=== PATIENT | female | born 1990 | race Caucasian/White ===

== ENCOUNTER 2022-09-27 08:46 | Emergency (ER) | payer OTHER, SELFPAY ==
[2022-09-27 08:46] VITALS: BP 133/80; PULSE 93; RESP 18; TEMP 36.6; O2SAT 98; BMI 32.2
--- NOTE | 2022-09-27 08:54 | DI.US.S_ITS ---
PROCEDURE: US OB <= 14 WEEKS FETUS INDICATIONS: SPOTTING OUTSIDE/PRIOR DATING DATA: Last menstrual period (LMP): 07/21/2022 LMP-based estimated date of delivery (EMAUNEL): 04/27/2023. First dating scan (date and location): 09/27/2022. Estimated date of delivery (EMANUEL) from first dating scan: 04/28/2023. The calculations are made using the working EMANUEL of 04/27/2023. TECHNIQUE: Real-time scanning was performed of the fetus and maternal pelvic organs, with image documentation. Endovaginal scanning was also performed to better visualize the fetus and maternal ovaries. COMPARISON: None. FINDINGS: Embryo: [place]-rump length measures 2.7 cm corresponding with a 9 week 4 day gestation Heart rate: 169 beats per minute. Yolk sac appears normal. Maternal organs: Ovaries shows left-sided corpus luteum cyst. Perigestational bleed on the right measures 2.4 x 1.7 x 0.8, there is another anterior perigestational bleed measuring 1.6 x 3.4 x 0.9 cm IMPRESSION: Single live intrauterine consistent with a 9 week 4 day gestation 2 separate perigestational bleed is noted measuring up to 9 mm in thickness. Approved by: Ever Baker M.D. on 09/27/2022 at 10:08
--- NOTE | 2022-09-27 09:01 | ED_ITS ---
HPI - General Adult General Chief complaint: Vaginal Bleeding Stated complaint: 10 weeks preg, spotting Time Seen by Provider: 09/27/22 08:47 Source: patient Mode of arrival: Ambulatory Limitations: no limitations History of Present Illness HPI narrative: Patient is a 32-year-old female. at approximately 9.5 weeks EGA based off of an ultrasound last week. She is scheduled to see the OB providers for the 1s t time tomorrow. Patient's 1st ended in an elective at 17 weeks after the child was found to have cystic fibrosis after an amniocentesis. That was approximately 5 years ago. Patient states that a couple days ago she did have some abdominal pain that ended with a large bowel movement. Has not had any abdominal pain today but this morning started having vaginal bleeding that is worsened. She contacted the OB providers who advised that she come to the emergency department for further evaluation. Review of Systems Constitutional Constitutional: Reports system reviewed and no additional complaints, except as documented Gastrointestinal Gastrointestinal: Reports system reviewed and no additional complaints, except as documented Genitourinary Genitourinary: Reports system reviewed and no additional complaints, except as documented Musculoskeletal Musculoskeletal: Reports system reviewed and no additional complaints, except as documented Integumentary/Breasts Skin/Breast: Reports system reviewed and no additional complaints, except as documented Hematologic/Lymphatic On Anticoagulants: No Patient History Substance Use Type: does not use Exam Initial Vital Signs Initial Vital Signs: Vital Signs Temperature 97.8 F 09/27/22 08:46 Pulse Rate 93 H 09/27/22 08:46 Respiratory Rate 18 09/27/22 08:46 Blood Pressure 133/80 09/27/22 08:46 Pulse Oximetry 98 09/27/22 08:46 Oxygen Delivery Method 09/27/22 08:46 Const General: cooperative and comfortable Resp Effort & Inspection: normal respiratory effort Cardio Rate: regular rate GI Inspection: non-distended Skin General: no rashes or lesions noted Neuro General: patient alert, patient awake and moves all extremities Extrem General: capillary refill normal Course Orders Ordered: ED Orders 09/27/22 08:54 US OB <= 14 weeks fetus Stat 09/27/22 09:10 Basic Metabolic Panel Stat Complete Blood Count AUTO DIFF Stat HCG Quantitative /Beta subunit Stat 09/27/22 09:19 Urine Microscopic Stat 09/27/22 09:30 ABO RH Type Stat Vital Signs Vital signs: Vital Signs - 8 hr 09/27/22 08:46 Temperature 97.8 F Pulse Rate 93 H Respiratory Rate 18 Blood Pressure 133/80 Pulse Oximetry 98 Oxygen Delivery Method Room Air Medical Decision Making Lab Data Lab results reviewed: Yes I reviewed the patient's lab results. 09/27/22 09:10 09/27/22 09:10 Labs: Lab Results 09/27/22 09/27/22 09/27/22 Range/Units 09:10 09:10 09:10 WBC 7.3 (4.5-11.0) X10^3/uL RBC 4.03 (4.0-5.2) X10^6/uL Hgb 12.2 (12.0-16.0) g/dL Hct 35.5 L (36-46) % MCV 88.1 (80-100) fL MCH 30.2 (26-34) PG MCHC 34.3 (30-36) % RDW 12.8 (11.6-14.8) % Plt Count 250 (150-400) X10^3/uL Neut % (Auto) 73.4 (50-75) % Lymph % (Auto) 15.8 L (25-40) % Coal % (Auto) 5.4 (3-14) % Eos % (Auto) 1.1 L (2-4) % Baso % (Auto) 4.3 H (0-2) % Neut # (Auto) 5300 (3997-6291) /uL Lymph # (Auto) 1100 (0584-0003) /uL Coal # (Auto) 400 (0-900) /uL Eos # (Auto) 100 (0-450) /uL Baso # (Auto) 300 H (0-100) /uL Sodium 135 L (137-145) mmol/L Potassium 3.9 (3.4-5.1) mmol/L Chloride 102 (98-107) mmol/L Carbon Dioxide 22 (22-32) mmol/L BUN 8 (7-17) mg/dL Creatinine 0.52 (0.52-1.04) mg/dL Estimated GFR > 60 (>60) mL/min BUN/Creatinine Ratio 15.4 (6-22) Glucose 94 (70-100) mg/dL Calcium 8.6 (8.4-10.2) mg/dL HCG, Quant 74475 mIU/mL Urine RBC (0-5/HPF) Urine WBC (0-5/HPF) Ur Squamous Epith Cells (0-5/HPF) Urine Bacteria (None) Ur Culture Indicated? Blood Type 09/27/22 09/27/22 Range/Units 09:19 09:30 WBC (4.5-11.0) X10^3/uL RBC (4.0-5.2) X10^6/uL Hgb (12.0-16.0) g/dL Hct (36-46) % MCV (80-100) fL MCH (26-34) PG MCHC (30-36) % RDW (11.6-14.8) % Plt Count (150-400) X10^3/uL Neut % (Auto) (50-75) % Lymph % (Auto) (25-40) % Coal % (Auto) (3-14) % Eos % (Auto) (2-4) % Baso % (Auto) (0-2) % Neut # (Auto) (7901-7489) /uL Lymph # (Auto) (1413-0669) /uL Coal # (Auto) (0-900) /uL Eos # (Auto) (0-450) /uL Baso # (Auto) (0-100) /uL Sodium (137-145) mmol/L Potassium (3.4-5.1) mmol/L Chloride (98-107) mmol/L Carbon Dioxide (22-32) mmol/L BUN (7-17) mg/dL Creatinine (0.52-1.04) mg/dL Estimated GFR (>60) mL/min BUN/Creatinine Ratio (6-22) Glucose (70-100) mg/dL Calcium (8.4-10.2) mg/dL HCG, Quant mIU/mL Urine RBC 0-1/hpf (0-5/HPF) Urine WBC 0-1/hpf (0-5/HPF) Ur Squamous Epith Cells 0-1 /hpf (0-5/HPF) Urine Bacteria Occasional (0-1) (None) Ur Culture Indicated? Cult not indicated Blood Type O Positive Urine Dip Bedside Urine Glucose Negative Bedside Urine Bilirubin - Negative Bedside Urine Ketone - Negative Urine Specific [place] 1.010 Bedside Urine Occult Blood +++ Bedside Urine pH 6.0 Bedside Urine Protein - Negative Bedside Urine Urobilinogen - Negative Bedside Urine Nitrite - Negative Bedside Urine Leukocytes - Negative Esterase Point of care testing: Urine Dip Bedside Urine Glucose Negative Bedside Urine Bilirubin - Negative Bedside Urine Ketone - Negative Urine Specific [place] 1.010 Bedside Urine Occult Blood +++ Bedside Urine pH 6.0 Bedside Urine Protein - Negative Bedside Urine Urobilinogen - Negative Bedside Urine Nitrite - Negative Bedside Urine Leukocytes - Negative Esterase Imaging Data US - OB: Radiologist's Impression: [address] [address] Ultrasound Report Signed Patient: Pat Villegas MR#: [id number] : 1990 Acct:[id number] Age/Sex: 32 / F Date of Service: 09/27/22 Loc: Accession Number: [id number] ?? Procedure: US OB <= 14 weeks fetus Ordering Provider: Rafael Ivory D.O. PROCEDURE:? US OB <= 14 WEEKS FETUS ? INDICATIONS:? SPOTTING ? OUTSIDE/PRIOR DATING DATA:? Last menstrual period (LMP):? 07/21/2022 LMP-based estimated date of delivery (EMANUEL):? 04/27/2023.? First dating scan (date and location):? 09/27/2022.? Estimated date of delivery (EMANUEL) from first dating scan:? 04/28/2023. The calculations are made using the working EMANUEL of 04/27/2023. ? TECHNIQUE:? Real-time scanning was performed of the fetus and maternal pelvic organs, with image documentation.? Endovaginal scanning was also performed to better visualize the fetus and maternal ovaries.? ? COMPARISON:? None. ? FINDINGS:? ? Embryo:? [place]-rump length measures 2.7 cm corresponding with a 9 week 4 day gestation Heart rate:? 169 beats per minute.? Yolk sac appears normal. ? Maternal organs:? Ovaries shows left-sided corpus luteum cyst. ? ? Perigestational bleed on the right measures 2.4 x 1.7 x 0.8, there is another anterior perigestational bleed measuring 1.6 x 3.4 x 0.9 cm ? ? IMPRESSION:? ? Single live intrauterine consistent with a 9 week 4 day gestation ? 2 separate perigestational bleed is noted measuring up to 9 mm in thickness. ? Approved by: Ever Baker M.D. on 09/27/2022 at 10:08? [facility] Narrative Medical decision making narrative: Patient is nontoxic. Vital signs are unremarkable. His Rh positive. No indication for RhoGAM. Has a single live intrauterine gestation at 9 weeks 4 days which does correspond to her EGA. She is an appointment with her OB doctor tomorrow. We did discuss the. Gestational bleeds. This could potentially be the cause of her bleeding today. No further workup required in the emergency department. She was given return precautions and follow-up instructions. She expressed understanding and agreement. Discharge Plan Departure Patient Disposition: Home Clinical Impression: Threatened miscarriage in early Instructions: DI for Vaginal Bleeding During Activity Restrictions/Additional Instructions: I recommend that you keep your appointment that you have scheduled tomorrow with your OB doctor. Return to the emergency department for fevers, pain that is not controlled with Tylenol, bleeding through 1 pad an hour for multiple hours or any other worsening symptoms. Stand Alone Forms: Patient Portal/API
[2022-09-27 09:19] LABS: Add Manual Diff / Slide Review NO; Basophils Absolute Auto 300 /uL (0-100); Basophils Percent Auto 4.3 % (0-2); Eosinophils Absolute Auto 100 /uL (0-450); Eosinophils Percent Auto 1.1 % (2-4); Hematocrit 35.5 % (36-46); Hemoglobin 12.2 g/dL (12.0-16.0); Lymphocytes Absolute Auto 1100 /uL (1100-4500); Lymphocytes Percent Auto 15.8 % (25-40); Mean Corpuscular HGB Conc 34.3 % (30-36); Mean Corpuscular Hemoglobin 30.2 PG (26-34); Mean Corpuscular Volume 88.1 fL (80-100); Monocytes Absolute Auto 400 /uL (0-900); Monocytes Percent Auto 5.4 % (3-14); Neutrophils Absolute Auto 5300 /uL (1500-7000); Neutrophils Percent Auto 73.4 % (50-75); Platelet Count 250 X10^3/uL (150-400); Red Blood Cell Count 4.03 X10^6/uL (4.0-5.2); Red Cell Distribution Width 12.8 % (11.6-14.8); White Blood Cell Count 7.3 X10^3/uL (4.5-11.0)
[2022-09-27 09:29] LABS: BUN Creatinine Ratio 15.4 (6-22); Blood Urea Nitrogen 8 mg/dL (7-17); Calcium 8.6 mg/dL (8.4-10.2); Carbon Dioxide 22 mmol/L (22-32); Chloride 102 mmol/L (98-107); Estimated Glomerular Filt Rate > 60 mL/min (>60); Glucose 94 mg/dL (70-100); HEMOLYSIS < 15 (0-50); Potassium 3.9 mmol/L (3.4-5.1); Sodium 135 mmol/L (137-145)
[2022-09-27 09:53] LABS: Bacteria Urine Occasional (0-1); Culture Indicated Urine Cult Not Indicated; RBC Urine 0-1/HPF (0-5/HPF); Squamous Epithelial Cell Urine 0-1 /HPF (0-5/HPF); WBC Urine 0-1/HPF (0-5/HPF)
[2022-09-27 10:10] LABS: HCG Quantitative /Beta subunit 82081 mIU/mL
[2022-09-27 11:39] VITALS: BP 114/66; PULSE 91; O2SAT 96
== END 2022-09-27 12:04 | disposition home or self-care (01) ==
PROVIDERS: Emergency Provider Emergency Medicine
DX: O20.0 Threatened abortion (principal); Z3A.09 9 weeks gestation of pregnancy
CPT/HCPCS: 36415; 76801; 76817; 80048; 81003; 81015; 84702; 85025; 86900; 86901; 99283; 99284